=== PATIENT | male | born 1980 | race Caucasian/White ===

== ENCOUNTER 2023-06-09 11:36 | Emergency (ER) | payer OTHER ==
[2023-06-09] MEDS ORDERED: Diphtheria,Pertussis(Acell),Tetanus Vaccine 0.5 ML Syringe IM ONE (14:38)
[2023-06-09] MEDS ORDERED: Bacitracin Oint 1 GM U/D Packet ONE (14:50)
[2023-06-09] MEDS ORDERED: Bacitracin Oint 1 GM U/D Packet TOP ONE (15:08)
== END 2023-06-09 15:29 | disposition home or self-care (01) ==
LOC: JP.ED 11:36
DX: S80.852A Superficial foreign body, left lower leg, initial encounter (principal); W45.8XXA Other foreign body or object entering through skin, initial encounter
CPT/HCPCS: 90471; 90715; 99283-25